=== PATIENT | female | born 1990 | race African-American/Black ===

== ENCOUNTER 2020-01-27 11:57 | Emergency (ER) | payer MEDICAID ==
[~2020-01-27] VITALS: Ht 162.6 cm; Wt 71.0 kg
[2020-01-27 12:27] VITALS: BP 112/60
== END 2020-01-27 17:45 | disposition left against medical advice (07) ==
LOC: ER 11:57
DX: Z53.21 Procedure and treatment not carried out due to patient leaving prior to being seen by health care provider (principal)
CPT/HCPCS: 81025; 93005